=== PATIENT | female | born 1960 | race Caucasian/White ===

== ENCOUNTER 2019-06-16 10:55 | Emergency (ER) | payer MEDICAID ==
[~2019-06-16] VITALS: Ht 144.8 cm; Wt 43.1 kg
[~2019-06-16 10:55] MED LIST: ALPR0.5T PO; BACL-63 PO; GABA300C PO; IBU600T PO; LEVO125T66 PO; NOR10T PO; TRAZ50TA2 PO
[2019-06-16 11:26] VITALS: BP 147/97
== END 2019-06-16 13:12 | disposition home or self-care (01) ==
LOC: ER 10:56
DX: Z48.03 Encounter for change or removal of drains (principal); I10 Essential (primary) hypertension; F17.210 Nicotine dependence, cigarettes, uncomplicated; Z90.49 Acquired absence of other specified parts of digestive tract; Z88.8 Allergy status to other drugs, medicaments and biological substances; Z79.1 Long term (current) use of non-steroidal anti-inflammatories (NSAID); Z79.899 Other long term (current) drug therapy
CPT/HCPCS: 76705

== ENCOUNTER 2021-10-26 23:36 | Inpatient (IN) | payer MEDICAID ==
[~2021-10-26] VITALS: Ht 154.9 cm; Wt 47.6 kg
[~2021-10-26 23:36] MED LIST changes: +LEVO125T PO; -LEVO125T66 PO
[2021-10-27 01:23] LABS: Amphetamine Screen, Urine NEGATIVE (NEGATIVE); Barbiturate Scree,Urine NEGATIVE (NEGATIVE); Benzodiazephine Screen, Urine NEGATIVE (NEGATIVE); Cannabinoid Screen, Urine NEGATIVE (NEGATIVE); Cocaine Screen, Urine NEGATIVE (NEGATIVE); Opiate Scree,Urine NEGATIVE (NEGATIVE); Phencyclidine Screen, Urine NEGATIVE (NEGATIVE)
[2021-10-27 01:39] LABS: Urine Bacteria FEW /hpf (None Seen); Urine Blood Negative /uL (Negative); Urine Hyaline Cast FEW /lpf (0 - 2); Urine Mucus FEW (None Seen); Urine Specific Gravity 1.022 (1.001-1.035); Urine WBC 2 /hpf (0 - 5)
[2021-10-27 03:42] LABS: Basophils # (auto) 0.1 10 ^3/uL (0-0.2); Basophils % (auto) 0.7 % (0.0-2.0); Eosinophils # (auto) 0.3 10 ^3/uL (0-0.8); Eosinophils % (auto) 3.9 % (0.0-7.0); Hematocrit 43.4 % (36.0-46.0); Hemoglobin 14.1 g/dL (12.2-16.2); Lymphocytes # (auto) 2.7 10 ^3/uL (0.4-5.4); Mean Corpuscular Hemoglobin 27.3 pg (28.0-32.0); Mean Corpuscular Hgb Conc. 32.4 g/dL (32.0-36.0); Mean Corpuscular Volume 84.1 fL (80.0-100.0); Monocytes # (auto) 1.1 10 ^3/uL (0-1.3); Monocytes % (auto) 12.6 % (0.0-12.0); Neutrophils # (auto) 4.3 10 ^3/uL (1.6-8.6); Neutrophils % (auto) 50.8 % (37.0-80.0); Nucleated Red Blood Cells % 0.3 %; Red Blood Cells 5.16 10^6/uL (4.0-5.20); Red Cell Distribution Width 15.5 % (11.8-14.3); White Blood Cell 8.5 10^3/uL (4.4-10.8)
[2021-10-27] MEDS ORDERED: LORazepam 2MG/ML-1ML VIAL ONE (03:55)
[2021-10-27] MEDS ORDERED: LORazepam 2MG/ML-1ML VIAL IV ONE ×2 (04:00→13:00)
[2021-10-27 04:55] LABS: Alanine Aminotransferase 30 U/L (13-56); Albumin 3.8 g/dL (3.4-5.0); Anion Gap 17 (5-15); Aspartate Aminotransferase 47 U/L (15-37); BUN/Creatinine Ratio 41.4; Blood Alcohol < 3.0 mg/dL (0-5); Blood Urea Nitrogen 24 mg/dL (7-18); Calcium 9.7 mg/dL (8.5-10.1); Carbon Dioxide 21 mmol/L (21-32); Chloride 106 mmol/L (98-107); GFR African American 136 mL/min; GFR Non-African American 112 mL/min; Glucose 63 mg/dL (74-106); Magnesium 2.5 mg/dL (1.6-2.6); Potassium 3.4 mmol/L (3.5-5.1); Sodium 144 mmol/L (136-145)
[2021-10-27 04:58] LABS: Alkaline Phosphatase 256 U/L (45-117); Bilirubin, Total 0.7 mg/dL (0.2-1.0)
[2021-10-27] MEDS ORDERED: D5W/SOD CHL 0.45% 1,000 ML IV ONE (05:30)
[2021-10-27] MEDS ORDERED: POTASSIUM EFFERVESENT TAB 25 MEQ PO ONE (05:30)
[2021-10-27] MEDS ORDERED: HYDROmorphone HCL 2 MG/ML VL IV ONE (06:15)
[2021-10-27] MEDS ORDERED: ONDANSETRON HCL 4 MG/2 ML VIAL IV ONE (06:15)
[2021-10-27] MEDS ORDERED: NITROGLYCERIN 0.4 MG SL TAB SL PRN (10:00)
[2021-10-27] MEDS ORDERED: MORPHINE SULFATE INJECTION 2 MG/ML SYRG IV PRN (10:00)
[2021-10-27] MEDS: MORPHINE SULFATE INJECTION 2 MG/ML SYRG IV PRN (10:35)
[2021-10-27] MEDS: ONDANSETRON HCL 4 MG/2 ML VIAL IV PRN (10:49)
[2021-10-27 11:12] LABS: INR 1.02 (0.9-1.15)
[2021-10-27] MEDS: D5W/SOD CHL 0.45% 1,000 ML IV SCH (15:00)
[2021-10-27] MEDS ORDERED: hydrALAZINE HCL 20 MG/ML VL IV PRN (15:00)
[2021-10-27] MEDS ORDERED: ACETAMINOPHEN 325 MG TAB PO ONE (20:19)
[2021-10-27] MEDS: ACETAMINOPHEN 325 MG TAB PO PRN (21:34)
[2021-10-27] MEDS: LORazepam 2MG/ML-1ML VIAL IV PRN (23:20)
[2021-10-28] MEDS: MORPHINE SULFATE INJECTION 2 MG/ML SYRG IV PRN ×2 (00:24→08:29)
[2021-10-28] MEDS: D5W/SOD CHL 0.45% 1,000 ML IV SCH ×3 (01:59→17:09)
[2021-10-28] MEDS ORDERED: LEVOTHYROXINE SODIUM 50 MCG TAB PO SCH (07:00)
[2021-10-28 07:12] LABS: Basophils # (auto) 0.1 10 ^3/uL (0-0.2); Basophils % (auto) 0.6 % (0.0-2.0); Eosinophils # (auto) 0 10 ^3/uL (0-0.8); Hematocrit 35.6 % (36.0-46.0); Hemoglobin 11.7 g/dL (12.2-16.2); Lymphocytes # (auto) 1.3 10 ^3/uL (0.4-5.4); Lymphocytes % (auto) 8.1 % (10.0-50.0); Mean Corpuscular Hemoglobin 28.2 pg (28.0-32.0); Mean Corpuscular Hgb Conc. 32.8 g/dL (32.0-36.0); Mean Corpuscular Volume 86.2 fL (80.0-100.0); Monocytes # (auto) 1.1 10 ^3/uL (0-1.3); Monocytes % (auto) 6.9 % (0.0-12.0); Neutrophils # (auto) 13.8 10 ^3/uL (1.6-8.6); Neutrophils % (auto) 84.4 % (37.0-80.0); Red Blood Cells 4.13 10^6/uL (4.0-5.20); Red Cell Distribution Width 16.2 % (11.8-14.3); White Blood Cell 16.4 10^3/uL (4.4-10.8)
[2021-10-28 07:26] LABS: INR 1.01 (0.9-1.15); Partial Thromboplastin Time 27.8 sec (23.6-33.0)
[2021-10-28 07:44] LABS: Albumin 3.2 g/dL (3.4-5.0); Calcium 8.8 mg/dL (8.5-10.1); Magnesium 3.5 mg/dL (1.6-2.6); Potassium 3.5 mmol/L (3.5-5.1)
[2021-10-28 07:47] LABS: BUN/Creatinine Ratio 40.4; Bilirubin, Total 0.8 mg/dL (0.2-1.0)
[2021-10-28] MEDS: ONDANSETRON HCL 4 MG/2 ML VIAL IV PRN (08:30)
[2021-10-28] MEDS ORDERED: ADENOSINE 50 MG in GIVE UN-DILUTED 0 ML IV ONE (10:00)
[2021-10-28] MEDS ORDERED: FAMOTIDINE (10MG/ML) 2ML VL IV SCH (10:00)
[2021-10-28] MEDS: ACETAMINOPHEN 325 MG TAB PO PRN ×2 (11:26→23:35)
[2021-10-28] MEDS: LORazepam 2MG/ML-1ML VIAL IV PRN (12:25)
[2021-10-28] MEDS ORDERED: ceFAZolin 1GM/50ML 100 ML IV ONE (13:55)
[2021-10-28] MEDS ORDERED: BUPIVACAINE W/ EPINEPH 0.25% INJ 50ML MDV ONE (14:09)
[2021-10-28] MEDS ORDERED: fentaNYL CITRATE 5 ML ONE (14:48)
[2021-10-28] MEDS ORDERED: ROCURONIUM 10MG/ML 10ML VIAL IV ONE (14:48)
[2021-10-28] MEDS ORDERED: fentaNYL CITRATE 100 MCG/2 ML VL ONE (14:48)
[2021-10-28] MEDS ORDERED: LACTATED RINGER'S 1,000 ML IV SCH (16:30)
[2021-10-28] MEDS ORDERED: ONDANSETRON HCL 4 MG/2 ML VIAL IV PRN ×2 (16:30→23:15)
[2021-10-28] MEDS ORDERED: HYDROmorphone HCL 2 MG/ML VL IV PRN ×2 (16:30)
[2021-10-28 18:37] VITALS: BP 148/69
[2021-10-28] MEDS ORDERED: ceFAZolin 1GM/50ML 50 ML IV SCH (20:30)
[2021-10-28 22:00] VITALS: BP 148/71
[2021-10-28] MEDS ORDERED: DOCUSATE SOD 100 MG CAP PO SCH (22:00)
[2021-10-28] MEDS ORDERED: NITROGLYCERIN 0.4 MG SL TAB SL PRN (23:00)
[2021-10-28] MEDS: LACTATED RINGER'S 1,000 ML IV SCH (23:15)
[2021-10-28] MEDS ORDERED: hydrALAZINE HCL 20 MG/ML VL IV PRN (23:15)
[2021-10-28] MEDS ORDERED: MORPHINE SULFATE INJECTION 2 MG/ML SYRG IV PRN (23:15)
[2021-10-28] MEDS ORDERED: LORazepam 2MG/ML-1ML VIAL IV PRN (23:15)
[2021-10-28] MEDS ORDERED: D5W/SOD CHL 0.45% 1,000 ML IV SCH (23:15)
[2021-10-28] MEDS: ceFAZolin 1GM/50ML 50 ML IV SCH (23:16)
[2021-10-29] MEDS: ceFAZolin 1GM/50ML 50 ML IV SCH ×4 (04:13→21:11)
[2021-10-29] MEDS: ACETAMINOPHEN 325 MG TAB PO PRN (04:33)
[2021-10-29 05:00] VITALS: BP 133/68
[2021-10-29] MEDS: LEVOTHYROXINE SODIUM 50 MCG TAB PO SCH (06:20)
[2021-10-29] MEDS: ENOXAPARIN SOD 30 MG/0.3 ML SYRINGE SC SCH ×2 (08:27→22:00)
[2021-10-29] MEDS: MORPHINE SULFATE INJECTION 2 MG/ML SYRG IV PRN ×3 (08:28→19:37)
[2021-10-29] MEDS: FAMOTIDINE (10MG/ML) 2ML VL IV SCH (08:29)
[2021-10-29] MEDS: DOCUSATE SOD 100 MG CAP PO SCH ×2 (08:29→22:00)
[2021-10-29 09:01] VITALS: BP 146/73
[2021-10-29] MEDS: LACTATED RINGER'S 1,000 ML IV SCH ×2 (09:15→19:15)
[2021-10-29 09:45] LABS: Basophils # (auto) 0.1 10 ^3/uL (0-0.2); Basophils % (auto) 0.7 % (0.0-2.0); Eosinophils # (auto) 0 10 ^3/uL (0-0.8); Eosinophils % (auto) 0.3 % (0.0-7.0); Hematocrit 27.6 % (36.0-46.0); Hemoglobin 9.1 g/dL (12.2-16.2); Lymphocytes # (auto) 1.2 10 ^3/uL (0.4-5.4); Lymphocytes % (auto) 8.5 % (10.0-50.0); Mean Corpuscular Hemoglobin 28.2 pg (28.0-32.0); Mean Corpuscular Hgb Conc. 32.9 g/dL (32.0-36.0); Mean Corpuscular Volume 85.7 fL (80.0-100.0); Monocytes # (auto) 0.9 10 ^3/uL (0-1.3); Monocytes % (auto) 6.4 % (0.0-12.0); Neutrophils # (auto) 11.6 10 ^3/uL (1.6-8.6); Neutrophils % (auto) 84.1 % (37.0-80.0); Red Blood Cells 3.22 10^6/uL (4.0-5.20); Red Cell Distribution Width 15.8 % (11.8-14.3); White Blood Cell 13.8 10^3/uL (4.4-10.8)
[2021-10-29 10:01] LABS: Albumin 2.5 g/dL (3.4-5.0); Calcium 7.6 mg/dL (8.5-10.1); Potassium 3.3 mmol/L (3.5-5.1)
[2021-10-29 10:05] LABS: Bilirubin, Total 0.5 mg/dL (0.2-1.0); Total Protein 5.4 g/dL (6.4-8.2)
[2021-10-29 10:43] LABS: BUN/Creatinine Ratio 26.4
[2021-10-29] MEDS ORDERED: OXYCODONE W/ ACETAMINOPHEN 5/325MG TABLET PO PRN (11:45)
[2021-10-29] MEDS ORDERED: POTASSIUM CHL 20 Meq TABLET PO ONE (11:45)
[2021-10-29 12:01] LABS: CRP High Sensitivity 16.9 mg/dL (< 0.3)
[2021-10-29] MEDS: OXYCODONE W/ ACETAMINOPHEN 5/325MG TABLET PO PRN ×2 (12:28→21:12)
[2021-10-29 16:59] VITALS: BP 128/71
[2021-10-29 22:00] VITALS: BP 115/71
[2021-10-29] MEDS ORDERED: ENOXAPARIN SOD 30 MG/0.3 ML SYRINGE SC SCH (22:00)
[2021-10-30] MEDS: MORPHINE SULFATE INJECTION 2 MG/ML SYRG IV PRN ×3 (00:30→10:16)
[2021-10-30] MEDS: OXYCODONE W/ ACETAMINOPHEN 5/325MG TABLET PO PRN ×3 (02:52→14:54)
[2021-10-30 05:00] VITALS: BP 126/68
[2021-10-30] MEDS: LACTATED RINGER'S 1,000 ML IV SCH ×3 (05:17→09:09)
[2021-10-30 06:04] LABS: Basophils # (auto) 0 10 ^3/uL (0-0.2); Basophils % (auto) 0.4 % (0.0-2.0); Eosinophils # (auto) 0 10 ^3/uL (0-0.8); Eosinophils % (auto) 0.3 % (0.0-7.0); Hematocrit 29.5 % (36.0-46.0); Hemoglobin 9.6 g/dL (12.2-16.2); Lymphocytes % (auto) 9.3 % (10.0-50.0); Mean Corpuscular Hemoglobin 28.1 pg (28.0-32.0); Mean Corpuscular Hgb Conc. 32.5 g/dL (32.0-36.0); Mean Corpuscular Volume 86.5 fL (80.0-100.0); Monocytes # (auto) 0.8 10 ^3/uL (0-1.3); Monocytes % (auto) 6.8 % (0.0-12.0); Neutrophils # (auto) 9.3 10 ^3/uL (1.6-8.6); Neutrophils % (auto) 83.2 % (37.0-80.0); Nucleated Red Blood Cells % 0.1 %; Red Blood Cells 3.41 10^6/uL (4.0-5.20); Red Cell Distribution Width 16.2 % (11.8-14.3); White Blood Cell 11.2 10^3/uL (4.4-10.8)
[2021-10-30 06:29] LABS: Potassium 3.8 mmol/L (3.5-5.1)
[2021-10-30] MEDS: LEVOTHYROXINE SODIUM 50 MCG TAB PO SCH (06:32)
[2021-10-30 06:43] LABS: BUN/Creatinine Ratio 35.1; Calcium 8.4 mg/dL (8.5-10.1)
[2021-10-30 08:00] VITALS: BP 115/63
[2021-10-30] MEDS: DOCUSATE SOD 100 MG CAP PO SCH (09:16)
[2021-10-30] MEDS: FAMOTIDINE (10MG/ML) 2ML VL IV SCH (09:16)
[2021-10-30] MEDS: ENOXAPARIN SOD 30 MG/0.3 ML SYRINGE SC SCH (09:17)
[2021-10-30 13:00] VITALS: BP 136/70
[2021-10-30 15:19] VITALS: BP 136/70
[2021-10-30] MEDS ORDERED: ALPRAZolam 0.25 MG TAB PO SCH (22:00)
[2021-10-30] MEDS ORDERED: traZODone HCL 50 MG TAB PO SCH (22:00)
== END 2021-10-30 16:00 | DRG 308 ==
LOC: EDBD 23:36 → ER 23:36 → TELE 10-27 09:56 → UNDODISIN 10-28 18:43 → TELE-WESTW 10-28 18:47
PROVIDERS: ADMIT Hospitalist; ATTEND Hospitalist
PROC: BQ171ZZ Fluoroscopy of Right Knee using Low Osmolar Contrast (ICD-10-PCS; 2021-10-28)
PROC: 0QSB36Z Reposition Right Lower Femur with Intramedullary Internal Fixation Device, Percutaneous Approach (ICD-10-PCS; principal; 2021-10-28 14:43)
DX: S72.414A Nondisplaced unspecified condyle fracture of lower end of right femur, initial encounter for closed fracture (principal); R54 Age-related physical debility; D72.829 Elevated white blood cell count, unspecified; E03.9 Hypothyroidism, unspecified; N18.30 Chronic kidney disease, stage 3 unspecified; I12.9 Hypertensive chronic kidney disease with stage 1 through stage 4 chronic kidney disease, or unspecified chronic kidney disease; G89.4 Chronic pain syndrome; Z20.822 Contact with and (suspected) exposure to COVID-19; M81.0 Age-related osteoporosis without current pathological fracture; F32.A Depression, unspecified; F41.9 Anxiety disorder, unspecified; W18.39XA Other fall on same level, initial encounter; R82.71 Bacteriuria; Z88.5 Allergy status to narcotic agent; Z72.0 Tobacco use; Z87.11 Personal history of peptic ulcer disease; Z90.49 Acquired absence of other specified parts of digestive tract; Y93.89 Activity, other specified; Y92.89 Other specified places as the place of occurrence of the external cause; Y99.8 Other external cause status
CPT/HCPCS: 36415; 70450; 71045; 72131; 73562; 73700; 76000; 78452; 80048; 80053; 80307; 80320; 81001; 82962; 83735; 84484; 85025; 85610; 85652; 85730; 86141; 86850; 86870; 86900; 86901; 87426; 93005; 93017; 93306; 96361; 96374; 96375; 97110; 97530; G0378; J0153; J0690; J2405; J3490

== ENCOUNTER 2022-09-19 08:08 | Emergency (ER) | payer MEDICAID ==
[~2022-09-19] VITALS: Ht 152.4 cm; Wt 41.0 kg
[2022-09-19 08:09] VITALS: BP 44/38
[2022-09-19] MEDS ORDERED: DEXTROSE 50% SYRINGE 50 ML IV ONE (08:31)
[2022-09-19] MEDS ORDERED: EPINEPHrine HCL 1 MG/10 ML SYRG ONE ×2 (08:38→08:47)
[2022-09-19] MEDS ORDERED: DEXTROSE 50% SYRINGE 100 ML IV ONE (08:38)
[2022-09-19] MEDS ORDERED: SODIUM BICARBONATE 8.4% INJ 50ML SYRINGE ONE (08:50)
== END 2022-09-19 15:28 ==
LOC: ER 08:08 → EDBD 08:08 → EDUNIT# 08:08 → ER 15:28
DX: I46.9 Cardiac arrest, cause unspecified (principal); I10 Essential (primary) hypertension; E03.9 Hypothyroidism, unspecified; Z90.49 Acquired absence of other specified parts of digestive tract; Z79.1 Long term (current) use of non-steroidal anti-inflammatories (NSAID); Z79.899 Other long term (current) drug therapy; Z88.8 Allergy status to other drugs, medicaments and biological substances
CPT/HCPCS: 31500; 92950; 99285; J0171; J7042